=== PATIENT | male | born 1970 | race Native Hawaiian/Other Pacific Islander ===

== ENCOUNTER 2019-08-16 08:00 | Outpatient (CLI) | payer BC ==
[2019-08-16 18:11] LABS: BASOPHILS % (AUTO) 0.1 %; EOSINOPHILS # (AUTO) 0.1 10^3/uL (0.0-0.7); EOSINOPHILS % (AUTO) 1.6 %; HGB - HEMOGLOBIN 15.4 g/dL (14.0-18.0); LYMPHOCYTES # (AUTO) 2.7 10^3/uL (1.5-3.5); LYMPHOCYTES % (AUTO) 34.1 %; MEAN CORPUSCULAR HGB CONC 30.1 g/dL (32.0-36.0); MEAN CORPUSCULAR VOLUME 69.9 fL (80.0-94.0); MEAN PLATELET VOLUME 12.1 fL (7.4-11.4); MONOCYTES # (AUTO) 0.6 10^3/uL (0.0-1.0); NEUTROPHILS # (AUTO) 4.5 10^3/uL (1.5-6.6); NEUTROPHILS % (AUTO) 55.8 %; PLT - PLATELET COUNT 223 10^3/uL (130-450); RED BLOOD COUNT 7.32 10^6/uL (4.70-6.10); RED CELL DISTRIBUTION WIDTH 17.8 % (12.0-15.0)
[2019-08-16 18:38] LABS: HB2 TOTAL 16.1 g/dL; HEMOGLOBIN A1C 0.6 g/dL; HEMOGLOBIN A1C % 5.6 % (4.6-6.2)
[2019-08-16 18:48] LABS: ALBUMIN 4.9 g/dL (3.2-5.5); ALBUMIN/GLOBULIN RATIO 1.6 (1.0-2.2); ALKALINE PHOSPHATASE 64 IU/L (42-121); ALT ALANINE AMINOTRANSFERASE 50 IU/L (10-60); AST ASPARTATE AMINOTRANSFERASE 23 IU/L (10-42); BUN - BLOOD UREA NITROGEN 15 mg/dL (6-20); CALCIUM 9.2 mg/dL (8.5-10.3); CARBON DIOXIDE - CO2 27 mmol/L (21-32); CHLORIDE 104 mmol/L (101-111); CHOLESTEROL 185 mg/dL; CREATININE 0.9 mg/dL (0.6-1.2); GLUCOSE 89 mg/dL (70-100); HDL CHOLESTEROL 37 mg/dL; LDL CHOLESTEROL,CALCULATED 97 mg/dL; LDL/HDL RATIO 2.6 (<3.6); SODIUM 139 mmol/L (135-145); TOTAL PROTEIN 7.9 g/dL (6.7-8.2); VLDL CHOLESTEROL 51 mg/dL
[2019-08-16 19:07] LABS: PLATELET ESTIMATE, MANUAL NORMAL (130-450,000) (NORMAL); PLATELET MORPHOLOGY NORMAL APPEARANCE (NORMAL)
== END 2019-08-16 08:01 | disposition home or self-care (01) ==
LOC: LAB.WCP 08:00
PROVIDERS: ATTEND Physician Assistant
DX: Z00.00 Encounter for general adult medical examination without abnormal findings (principal)
CPT/HCPCS: 36415; 80053; 80061; 83036; 83721; 84153; 84443; 85025

== ENCOUNTER 2020-07-26 16:09 | Outpatient (CLI) | payer BC ==
[2020-07-26 17:38] LABS: BASOPHILS % (AUTO) 0.3 %; EOSINOPHILS # (AUTO) 0.2 10^3/uL (0.0-0.7); EOSINOPHILS % (AUTO) 2.3 %; HCT - HEMATOCRIT 48.1 % (42.0-52.0); HGB - HEMOGLOBIN 14.6 g/dL (14.0-18.0); LYMPHOCYTES # (AUTO) 2.1 10^3/uL (1.5-3.5); LYMPHOCYTES % (AUTO) 33.2 %; MEAN CORPUSCULAR HEMOGLOBIN 21.1 pg (27.0-31.0); MEAN CORPUSCULAR HGB CONC 30.4 g/dL (32.0-36.0); MEAN CORPUSCULAR VOLUME 69.5 fL (80.0-94.0); MEAN PLATELET VOLUME 11.1 fL (7.4-11.4); MONOCYTES # (AUTO) 0.6 10^3/uL (0.0-1.0); MONOCYTES % (AUTO) 8.7 %; NEUTROPHILS # (AUTO) 3.5 10^3/uL (1.5-6.6); NEUTROPHILS % (AUTO) 55.2 %; PLT - PLATELET COUNT 248 10^3/uL (130-450); RED BLOOD COUNT 6.92 10^6/uL (4.70-6.10); RED CELL DISTRIBUTION WIDTH 17.2 % (12.0-15.0); WHITE BLOOD COUNT 6.4 x10^3/uL (4.8-10.8)
[2020-07-26 17:51] LABS: ALBUMIN 4.8 g/dL (3.2-5.5); ALBUMIN/GLOBULIN RATIO 1.5 (1.0-2.2); ALKALINE PHOSPHATASE 70 IU/L (42-121); ALT ALANINE AMINOTRANSFERASE 46 IU/L (10-60); AST ASPARTATE AMINOTRANSFERASE 24 IU/L (10-42); BILIRUBIN,TOTAL 0.4 mg/dL (0.2-1.0); BUN - BLOOD UREA NITROGEN 16 mg/dL (6-20); CALCIUM 9.1 mg/dL (8.5-10.3); CARBON DIOXIDE - CO2 24 mmol/L (21-32); CHLORIDE 102 mmol/L (101-111); CHOL/HDL RATIO 6.1 (<5.0); CHOLESTEROL 196 mg/dL; GFR - MDRD 79 (>89); GLUCOSE 96 mg/dL (70-100); HDL CHOLESTEROL 32 mg/dL; POTASSIUM 3.8 mmol/L (3.5-5.0); SODIUM 137 mmol/L (135-145); TOTAL PROTEIN 7.9 g/dL (6.7-8.2); TRIGLYCERIDES 421 mg/dL
[2020-07-26 18:01] LABS: THYROID STIMULATING HORMONE 1.11 uIU/mL (0.34-5.60)
[2020-07-26 18:23] LABS: PLATELET ESTIMATE, MANUAL NORMAL (130-450,000) (NORMAL); PLATELET MORPHOLOGY NORMAL APPEARANCE (NORMAL); WBC MORPHOLOGY (MULTIPLE) NORMAL APPEARANCE (NORMAL)
[2020-07-26 18:25] LABS: LDL CHOLESTEROL,DIRECT 104 mg/dL; LDLD/HDL RATIO 3.3 (<3.6)
== END 2020-07-26 16:10 | disposition home or self-care (01) ==
LOC: LAB.N 16:09
PROVIDERS: ATTEND Nurse Practitioner Family
DX: I10 Essential (primary) hypertension (principal)
CPT/HCPCS: 36415; 80053; 80061; 83721; 84443; 85025

== ENCOUNTER 2020-08-02 16:09 | Outpatient (CLI) | payer BC ==
[2020-08-02 18:36] LABS: % IRON SATURATION 13 % (20-50); IRON 56 ug/dL (45-182); TOTAL IRON BINDING CAPACITY 424 ug/dL (250-450); TRANSFERRIN 303 mg/dL (180-329)
[2020-08-02 18:53] LABS: FERRITIN 298.9 ng/mL (23.9-336.2)
[2020-08-02 18:57] LABS: FOLATE 11.85 ng/mL (5.90 - >24.8)
== END 2020-08-02 16:10 | disposition home or self-care (01) ==
LOC: LAB.N 16:09
PROVIDERS: ATTEND Internal Medicine
DX: D64.9 Anemia, unspecified (principal)
CPT/HCPCS: 36415; 82607; 82728; 82746; 83540; 84466

== ENCOUNTER 2020-12-07 16:27 | Outpatient (CLI) | payer BC | END 2020-12-07 16:28 | disposition home or self-care (01) | LOC: COV 16:27 | PROVIDERS: ATTEND Family Medicine | DX: U07.1 COVID-19 (principal) ==

== ENCOUNTER 2020-12-14 12:02 | Emergency (ER) | payer BC ==
--- NOTE | 2020-12-14 12:44 | ED Physician Documentation ---
History of Present Illness - Stated complaint Stated Complaint: C+ - History obtained from History obtained from: Patient - Additonal information Additional information: This is a 50-year-old male who is known to be Covid positive, diagnosed on December 07, 2020, who presents due to persistent cough. The patient states he feels okay his only concern is that he has had a cough and he goes into coughing fits that make it difficult to breathe and difficult to sleep. He denies any fever, chills, chest pain, dyspnea aside from when he has a cough, abdominal pain, nausea vomiting or diarrhea. He is active and eating well. He states he is vaccinated x2 with Covid. He has [id number]-braevfn cough medication without relief. Review of Systems Constitutional: reports: Reviewed and negative Eyes: reports: Reviewed and negative Ears: reports: Reviewed and negative Nose: reports: Reviewed and negative Cardiac: reports: Reviewed and negative Respiratory: reports: Dyspnea, Cough. denies: Hemoptysis, Wheezing GI: reports: Reviewed and negative : reports: Reviewed and negative Skin: reports: Reviewed and negative Musculoskeletal: reports: Reviewed and negative Neurologic: reports: Reviewed and negative Psychiatric: reports: Reviewed and negative Endocrine: reports: Reviewed and negative Immunocompromised: reports: Reviewed and negative PD PAST MEDICAL HISTORY - Past Medical History Past Medical History: Yes Cardiovascular: Hypertension - Present Medications Home Medications: Ambulatory Orders Medication Instructions Recorded Confirmed Benzonatate [Tessalon] 200 mg PO TID #30 12/14/20 Codeine Phosphate/Guaifenesin 10 ml PO Q6H PRN #200 ml 12/14/20 [Guaifen-Codeine 200-20 mg/10Ml] Levalbuterol Tartrate 15 gm IH Q4H PRN #1 unit 12/14/20 [Levalbuterol Tartrate Hfa] Losartan Potassium 25 mg PO DAILY 12/14/20 12/14/20 - Allergies Allergies/Adverse Reactions: Allergies Allergy/AdvReac Type Severity Reaction Status Date / Time No Known Drug Allergies Allergy Verified 12/14/20 13:10 PD ED PE NORMAL - Vitals Vital signs reviewed: Yes - General General: Alert and oriented X 3, No acute distress, Well developed/nourished - HEENT HEENT: Atraumatic, Pharynx benign - Neck Neck: Supple, no meningeal sign - Cardiac Cardiac: RRR, No murmur - Respiratory Respiratory: Clear bilaterally, Other (As a tachypneic, is in a coughing fit at this time.) - Abdomen Abdomen: Normal bowel sounds, Soft, Non tender, Non distended - Derm Derm: Normal color, Warm and dry, No rash - Extremities Extremities: No deformity, No tenderness to palpate, Normal ROM s pain - Neuro Neuro: Alert and oriented X 3 Eye Opening: Spontaneous Motor: Obeys Commands Verbal: Oriented GCS Score: 15 - Psych Psych: Normal mood, Normal affect Results - Vitals Vitals: Vital Signs - 24 hr 12/14/20 13:07 Temperature 36.5 C Heart Rate 79 Respiratory 28 H Rate Blood Pressure 121/81 H O2 Saturation 100 Oxygen O2 Source Room air PD MEDICAL DECISION MAKING - ED course Complexity details: reviewed results, re-evaluated patient, considered differential, d/w patient ED course: 50 yo male with known Covid infection presented with increasing cough, particularly at night. On arrival he was on room air at 100% but did desat occasionally with cough paroxysms and was briefly placed on oxygen by RN. He received codeine cough syrup with improvement in his cough and was again placed on room air w/o desat. Patient does qualify for Regeneron therapy per BMI and history of hypertension. I discussed that this medication is emergency use authorization only at this time and reviewed the risk versus benefits and patient did verbally agree to proceed. I spoke with pharmacy and patient will be made a dose of Regeneron to be administered in the ER patient will be monitored and then discharged home after infusion. I reviewed return precautions with patient in detail if you should worsen or have any side effects. Departure - Departure Clinical Impression: COVID-19 Condition: Good Instructions: ED Viral Syndrome Prescriptions: Codeine Phosphate/Guaifenesin [Guaifen-Codeine 200-20 mg/10Ml] 10 ml PO Q6H PRN #200 ml PRN Reason: Cough Levalbuterol Tartrate [Levalbuterol Tartrate Hfa] 15 gm IH Q4H PRN #1 unit PRN Reason: Cough Benzonatate [Tessalon] 200 mg PO TID #30 Comments: You presented with a Covid infection. Your x-ray shows bilateral infiltrates and likely developing viral pneumonia. You are otherwise stable and have not required oxygen supplementation. Her cough improved with codeine cough syrup which I will discharge you home on. We have also discussed the administration of Regeneron, which is a monoclonal antibody therapy. You received this in the ER and it is a one-time dose. Continue supportive measures at home including Tylenol or ibuprofen, oral fluids, plenty of rest and cough medication as needed. Return if you have worsening symptoms including increased shortness of breath, chest pain, nausea or vomiting and inability to tolerate oral supplementation or other new concerns.
[2020-12-14] MEDS ORDERED: guaiFENesin/CODEINE 5 ML UDC PO STA (13:12)
--- NOTE | 2020-12-14 13:56 | XRAY Report ---
PROCEDURE: Chest 1 View X-Ray INDICATIONS: chest pain TECHNIQUE: One view of the chest was acquired. COMPARISON: None FINDINGS: Surgical changes and devices: None. Lungs and pleura: No pleural effusions or pneumothorax. Subtle airspace opacities in bilateral lower lung [place] are seen concerning for developing pulmonary infiltrates. Mild pulmonary vascular conges tion is also seen. Mediastinum: Mediastinal contours appear normal. Heart size is normal. Bones and chest wall: No suspicious bony lesions. Overlying soft tissues appear unremarkable. IMPRESSION: Finding is concerning for developing bilateral lower lobe infiltrates possibly from COVID-19 infectio n. No pleural effusion or pneumothorax. Reviewed by: Sam Sanches MD on 12/14/2020 1:55 PM PDT Approved by: Sam Sanches MD on 12/14/2020 1:55 PM PDT Station ID: [id number]
[2020-12-14] MEDS ORDERED: CASIRIVIMAB/IMDEVIMAB 10 ML in SODIUM CHLORIDE 0.9% 50 ML IV ONE (15:00)
[2020-12-14 16:29] VITALS: BP 124/79
== END 2020-12-14 16:41 | disposition home or self-care (01) ==
LOC: ED 12:02
DX: U07.1 COVID-19 (principal); R05.9 Cough, unspecified; I10 Essential (primary) hypertension
CPT/HCPCS: 71045; 99284; A9270; J7040; M0243; Q0244

== ENCOUNTER 2020-12-29 08:00 | Outpatient (CLI) | payer BC | END 2020-12-29 23:59 | disposition home or self-care (01) | LOC: LAB.N 08:00 | PROVIDERS: ATTEND Nurse Practitioner | DX: B34.9 Viral infection, unspecified (principal); Z20.822 Contact with and (suspected) exposure to COVID-19 | CPT/HCPCS: 87070 ==

== ENCOUNTER 2021-08-14 16:13 | Outpatient (CLI) | payer BC ==
[2021-08-14 20:44] LABS: BASOPHILS % (AUTO) 0.3 %; EOSINOPHILS # (AUTO) 0.1 10^3/uL (0.0-0.7); EOSINOPHILS % (AUTO) 1.6 %; HCT - HEMATOCRIT 50.2 % (42.0-52.0); HGB - HEMOGLOBIN 15.1 g/dL (14.0-18.0); LYMPHOCYTES # (AUTO) 2.4 10^3/uL (1.5-3.5); MEAN CORPUSCULAR HEMOGLOBIN 20.7 pg (27.0-31.0); MEAN CORPUSCULAR HGB CONC 30.1 g/dL (32.0-36.0); MEAN CORPUSCULAR VOLUME 68.9 fL (80.0-94.0); MEAN PLATELET VOLUME 11.4 fL (7.4-11.4); MONOCYTES # (AUTO) 0.4 10^3/uL (0.0-1.0); MONOCYTES % (AUTO) 6.3 %; NEUTROPHILS # (AUTO) 4.1 10^3/uL (1.5-6.6); NEUTROPHILS % (AUTO) 57.5 %; PLT - PLATELET COUNT 255 10^3/uL (130-450); RED BLOOD COUNT 7.29 10^6/uL (4.70-6.10); RED CELL DISTRIBUTION WIDTH 17.4 % (12.0-15.0)
[2021-08-14 20:56] LABS: ALBUMIN 5.1 g/dL (3.2-5.5); ALBUMIN/GLOBULIN RATIO 1.8 (1.0-2.2); ALKALINE PHOSPHATASE 69 IU/L (42-121); ALT ALANINE AMINOTRANSFERASE 25 IU/L (10-60); AST ASPARTATE AMINOTRANSFERASE 17 IU/L (10-42); BILIRUBIN,TOTAL 0.9 mg/dL (0.2-1.0); BUN - BLOOD UREA NITROGEN 19 mg/dL (6-20); CALCIUM 9.4 mg/dL (8.5-10.3); CARBON DIOXIDE - CO2 25 mmol/L (21-32); CHLORIDE 102 mmol/L (101-111); CHOL/HDL RATIO 4.3 (<5.0); CHOLESTEROL 179 mg/dL; CREATININE 1.1 mg/dL (0.6-1.2); GFR - MDRD 70 (>89); GLUCOSE 94 mg/dL (70-100); HDL CHOLESTEROL 42 mg/dL; LDL CHOLESTEROL,CALCULATED 116 mg/dL; LDL/HDL RATIO 2.8 (<3.6); POTASSIUM 3.9 mmol/L (3.5-5.0); SODIUM 139 mmol/L (135-145); TRIGLYCERIDES 104 mg/dL; VLDL CHOLESTEROL 21 mg/dL
[2021-08-14 21:02] LABS: ESTIMATED AVERAGE GLUCOSE 108 mg/dL (70-100); HEMOGLOBIN A1c% 5.4 % (4.27-6.07)
[2021-08-14 21:07] LABS: THYROID STIMULATING HORMONE 1.19 uIU/mL (0.34-5.60)
== END 2021-08-14 16:14 | disposition home or self-care (01) ==
LOC: LAB.N 16:13
PROVIDERS: ATTEND Nurse Practitioner Family
DX: Z00.00 Encounter for general adult medical examination without abnormal findings (principal); I10 Essential (primary) hypertension; E78.1 Pure hyperglyceridemia; E55.9 Vitamin D deficiency, unspecified; D64.9 Anemia, unspecified
CPT/HCPCS: 36415; 80053; 80061; 82306; 83036; 83721; 84443; 85025

== ENCOUNTER 2023-06-23 16:15 | Outpatient (CLI) | payer BC ==
[2023-06-23 21:07] LABS: BUN - BLOOD UREA NITROGEN 18 mg/dL (6-20); CALCIUM 9.8 mg/dL (8.5-10.3); CARBON DIOXIDE - CO2 26 mmol/L (21-32); CHLORIDE 103 mmol/L (101-111); CHOL/HDL RATIO 3.8 (<5.0); CHOLESTEROL 154 mg/dL; CREATININE 1.1 mg/dL (0.6-1.3); GFR - MDRD 70 (>89); GLUCOSE 92 mg/dL (74-104); HDL CHOLESTEROL 41 mg/dL; LDL CHOLESTEROL,CALCULATED 86 mg/dL; LDL/HDL RATIO 2.1 (<3.6); POTASSIUM 3.9 mmol/L (3.5-4.5); SODIUM 137 mmol/L (135-145); TRIGLYCERIDES 135 mg/dL (48-352); VLDL CHOLESTEROL 27 mg/dL
== END 2023-06-23 16:16 | disposition home or self-care (01) ==
LOC: LAB.N 16:15
PROVIDERS: ATTEND Nurse Practitioner Family
DX: I10 Essential (primary) hypertension (principal); E78.5 Hyperlipidemia, unspecified
CPT/HCPCS: 36415; 80048; 80061; 83721